=== PATIENT | male | born 1955 | race Caucasian/White ===

== ENCOUNTER 2023-05-16 13:54 | Day surgery (SDC) | payer BC, MEDICARE ==
[~2023-05-16] VITALS: Ht 177.8 cm; Wt 104.2 kg
[2023-05-16] VITALS (8 sets, daily range): BP systolic 110–132; BP diastolic 62–73; PULSE 63–70; RESP 16; TEMP 97.9; O2SAT 95–97
[2023-05-16] MEDS ORDERED: LORazepam 0.5 MG tablet PO PRN (14:15)
[2023-05-16] MEDS ORDERED: diphenhydrAMINE 25mg capsule PO PRN (14:15)
[2023-05-16] MEDS ORDERED: normal saline 1,000 ML IV SCH (14:15)
[2023-05-16] MEDS ORDERED: CLOP75TA34 PO (14:18)
[2023-05-16] MEDS ORDERED: SACU1TAB PO (14:18)
[2023-05-16] MEDS ORDERED: CARV6.2553 PO (14:18)
[2023-05-16] MEDS ORDERED: SPIR25TA5 PO (14:18)
[2023-05-16] MEDS ORDERED: DAPA10TA PO (14:18)
[2023-05-16] MEDS ORDERED: ASPI81TA52 PO (14:19)
[2023-05-16] MEDS ORDERED: EZET10TA48 PO (14:19)
[2023-05-16] MEDS ORDERED: ALIR150P6 SQ (14:19)
[2023-05-16] MEDS ORDERED: CEPH500C82 PO (14:19)
[2023-05-16 14:51] LABS: BASOPHILS # (AUTO) 0.1 X10'3 (0-0.2); BASOPHILS % (AUTO) 0.7 % (0-1); EOSINOPHILS # (AUTO) 0.2 X10'3 (0-0.9); EOSINOPHILS % (AUTO) 2.9 % (0-6); HEMATOCRIT 42.9 % (42.0-52.0); HEMOGLOBIN 14.3 g/dl (14.0-17.9); LYMPHOCYTES # (AUTO) 2.3 X10'3 (1.1-4.8); LYMPHOCYTES % (AUTO) 30.4 % (21-51); MEAN CORPUSCULAR HGB CONC 33.3 g/dL (33.0-36.5); MEAN CORPUSCULAR VOLUME 87.1 FL (78-98); MEAN PLATELET VOLUME 8.6 FL (7.4-10.4); MONOCYTES # (AUTO) 0.9 X10'3 (0-0.9); MONOCYTES % (AUTO) 11.1 % (2-12); NEUTROPHILS # (AUTO) 4.2 X10'3 (1.8-7.7); NEUTROPHILS % (AUTO) 54.9 % (42-75); PLATELET COUNT 174 X10'3 (140-440); RED BLOOD COUNT 4.92 X10'6 (4.70-6.10); RED CELL DISTRIBUTION WIDTH 15.3 % (11.5-14.5); WHITE BLOOD COUNT 7.7 X10'3 (4.5-11.0)
[2023-05-16 15:01] LABS: PROTHROMBIN TIME 9.9 SECONDS (9.0-12.0)
[2023-05-16 15:13] LABS: INR 0.9 INR
[2023-05-16 15:14] LABS: ALBUMIN 3.2 G/DL (3.4-5.0); ANION GAP 8 (8-16); BLOOD UREA NITROGEN 16 MG/DL (7-18); BUN/CREATININE RATIO 14.2 (10.0-20.0); CALCIUM 8.8 MG/DL (8.5-10.1); CHLORIDE 104 MMOL/L (99-107); CREATININE 1.13 MG/DL (0.60-1.10); GLUCOSE 107 MG/DL (70-104); MAGNESIUM 2.4 MG/DL (1.5-2.4); POTASSIUM 3.9 MMOL/L (3.5-5.1); SODIUM 138 MMOL/L (135-145); TOTAL CARBON DIOXIDE 25.8 MMOL/L (24-32); eCRCL 66 ML/MIN; eGFR 65 ML/MIN
[2023-05-16] MEDS ORDERED: midazolam 1 mg/ML 2ml injection ONE (16:28)
[2023-05-16] MEDS ORDERED: LIDOcaine 1% (10mg/ml)w/preservative inj. 20ml MDV ONE (16:28)
[2023-05-16] MEDS ORDERED: iohexol 350MG/ML 100ml bottle IV ONE ×2 (16:28→17:44)
[2023-05-16] MEDS ORDERED: fentaNYL/PF 50MCG/1 ML 2ML syringe ONE (16:28)
[2023-05-16] MEDS ORDERED: DOBUTamine-DoBUTrex 500mg/D5W 0 ML IV ONE (17:42)
[2023-05-16] MEDS ORDERED: HYDROcodone/acetaminophen 5mg/325mg tablet PO PRN (19:00)
[2023-05-16] MEDS ORDERED: HYDROcodone/acetaminophen 10/325mg tab PO PRN (19:00)
[2023-05-17 05:56] LABS: ISTAT HGB ART 13.3 g/dl (14.0-17.9); ISTAT HGB MIX 13.9 g/dl (14.0-17.9); ISTAT Hct ART 39 %PCV (42-52); ISTAT Hct MIX 41 %PCV (42-52); ISTAT O2 SATURATION ARTERIAL 97 % (95-98); ISTAT O2 SATURATION MIX VENOUS 67 % (60-80); ISTAT SOURCE BLNK
== END 2023-05-16 20:15 | disposition home or self-care (01) ==
LOC: SSTAY O 13:54
PROVIDERS: ATTEND Student in an Organized Health Care Education/Training Program
DX: I35.0 Nonrheumatic aortic (valve) stenosis (principal); I25.810 Atherosclerosis of coronary artery bypass graft(s) without angina pectoris; I25.10 Atherosclerotic heart disease of native coronary artery without angina pectoris; I25.82 Chronic total occlusion of coronary artery; I42.9 Cardiomyopathy, unspecified; E78.5 Hyperlipidemia, unspecified; I11.0 Hypertensive heart disease with heart failure; I50.9 Heart failure, unspecified; Z79.82 Long term (current) use of aspirin; Z79.899 Other long term (current) drug therapy; Z95.810 Presence of automatic (implantable) cardiac defibrillator; Z79.01 Long term (current) use of anticoagulants
CPT/HCPCS: 36415; 80048; 82803; 83735; 85014; 85025; 85610; 93005; 93461; 99152; 99153; J1644; J2250; J3010; J3490; J7030; Q0163; Q9967; A6258; C1751; C1760; C1894; J1250

== ENCOUNTER 2023-06-03 10:30 | Outpatient (CLI) | payer BC, MEDICARE ==
[~2023-06-03 10:30] MED LIST: ALIR150P6 SQ; ASPI81TA52 PO; CARV6.2553 PO; CEPH500C82 PO; CLOP75TA34 PO; DAPA10TA PO; EZET10TA48 PO; SACU1TAB PO; SPIR25TA5 PO
[2023-06-03 11:40] LABS: BASOPHILS % (AUTO) 0.5 % (0-1); EOSINOPHILS # (AUTO) 0.2 X10'3 (0-0.9); HEMATOCRIT 44.5 % (42.0-52.0); HEMOGLOBIN 14.8 g/dl (14.0-17.9); LYMPHOCYTES # (AUTO) 2.2 X10'3 (1.1-4.8); LYMPHOCYTES % (AUTO) 27.4 % (21-51); MEAN CORPUSCULAR HEMOGLOBIN 29.3 PG (27.0-31.0); MEAN CORPUSCULAR HGB CONC 33.3 g/dL (33.0-36.5); MEAN CORPUSCULAR VOLUME 88.2 FL (78-98); MEAN PLATELET VOLUME 8.8 FL (7.4-10.4); MONOCYTES # (AUTO) 0.9 X10'3 (0-0.9); MONOCYTES % (AUTO) 10.9 % (2-12); NEUTROPHILS # (AUTO) 4.7 X10'3 (1.8-7.7); NEUTROPHILS % (AUTO) 59.2 % (42-75); PLATELET COUNT 187 X10'3 (140-440); RED BLOOD COUNT 5.04 X10'6 (4.70-6.10); RED CELL DISTRIBUTION WIDTH 14.4 % (11.5-14.5)
[2023-06-03 11:53] LABS: APTT 25 SECONDS (22-32); PROTHROMBIN TIME 9.8 SECONDS (9.0-12.0)
[2023-06-03 11:56] LABS: ALANINE AMINOTRANSFERASE 27 U/L (12-78); ALBUMIN 3.2 G/DL (3.4-5.0); ALBUMIN/GLOBULIN RATIO 0.8 (1.1-1.5); ALKALINE PHOSPHATASE 79 IU/L (46-116); ANION GAP 4 (8-16); ASPARTATE AMINO TRANSFERASE 21 U/L (10-37); BILIRUBIN,TOTAL 0.5 MG/DL (0.1-1.0); BLOOD UREA NITROGEN 12 MG/DL (7-18); BUN/CREATININE RATIO 11.2 (10.0-20.0); CALCIUM 8.7 MG/DL (8.5-10.1); CHLORIDE 106 MMOL/L (99-107); CREATININE 1.07 MG/DL (0.60-1.10); GLUCOSE 113 MG/DL (70-104); POTASSIUM 4.4 MMOL/L (3.5-5.1); SODIUM 140 MMOL/L (135-145); TOTAL CARBON DIOXIDE 30.4 MMOL/L (24-32); TOTAL PROTEIN 7.1 G/DL (6.4-8.2); eGFR 69 ML/MIN
[2023-06-03 11:57] LABS: INR 0.9 INR
[2023-06-03 12:04] LABS: PRO BRAIN NATRIURETIC PEPTIDE 168 PG/ML (0-125)
[2023-06-03] MEDS ORDERED: IODIXANOL 320 MG/ML INFUS..BTL 100ML IV ONE (12:09)
== END 2023-06-03 23:59 | disposition home or self-care (01) ==
LOC: 64 CT 10:30
PROVIDERS: ATTEND Internal Medicine Cardiovascular Disease
DX: Z01.818 Encounter for other preprocedural examination (principal); I35.0 Nonrheumatic aortic (valve) stenosis; R06.02 Shortness of breath; I65.29 Occlusion and stenosis of unspecified carotid artery; K80.20 Calculus of gallbladder without cholecystitis without obstruction; I70.0 Atherosclerosis of aorta; M47.814 Spondylosis without myelopathy or radiculopathy, thoracic region
CPT/HCPCS: 36415; 71046; 71275; 74174; 75572; 80053; 83880; 85025; 85610; 85730; 94010; 94727; 94729; J3490; Q9967; 70496

== ENCOUNTER 2023-07-21 06:01 | Inpatient (IN) | payer BC, MEDICARE ==
[2023-07-18 15:46] LABS: BILIRUBIN,URINE NEGATIVE (Neg); CLARITY,URINE CLEAR (Clear); COLOR,URINE YELLOW (Yellow); GLUCOSE, URINE >=1000 mg/dl (Neg); KETONES,URINE NEGATIVE (Neg); LEUKOCYTE ESTERASE ,URINE NEGATIVE (Neg); NITRITES, URINE NEGATIVE (Neg); OCCULT BLOOD,URINE TRACE-INTACT (Neg); PH,URINE 5.5 (4.8-8.0); PROTEIN,URINE NEGATIVE (Neg); UROBILINOGEN,URINE 0.2 E.U/dL (0.2-1.0)
[2023-07-18 15:47] LABS: BASOPHILS # (AUTO) 0.1 X10'3 (0-0.2); BASOPHILS % (AUTO) 0.6 % (0-1); EOSINOPHILS # (AUTO) 0.2 X10'3 (0-0.9); LYMPHOCYTES # (AUTO) 2.5 X10'3 (1.1-4.8); LYMPHOCYTES % (AUTO) 31.5 % (21-51); MEAN CORPUSCULAR HEMOGLOBIN 29.1 PG (27.0-31.0); MEAN CORPUSCULAR HGB CONC 32.8 g/dL (33.0-36.5); MEAN CORPUSCULAR VOLUME 88.7 FL (78-98); MEAN PLATELET VOLUME 8.8 FL (7.4-10.4); MONOCYTES % (AUTO) 12.2 % (2-12); NEUTROPHILS # (AUTO) 4.2 X10'3 (1.8-7.7); NEUTROPHILS % (AUTO) 53.7 % (42-75); PRE OP HEMATOCRIT 46.7 % (42.0-52.0); PRE OP HEMOGLOBIN 15.3 g/dL (14.0-17.9); PRE OP PLATELET COUNT 198 X10'3 (140-440); PRE OP WHITE BLOOD COUNT 7.8 10'3 (4.8-10.8); RED BLOOD COUNT 5.26 X10'6 (4.70-6.10); RED CELL DISTRIBUTION WIDTH 13.9 % (11.5-14.5)
[2023-07-18 15:51] LABS: UA COLLECTION TYPE CLN CATCH MIDSTREAM
[2023-07-18 15:54] LABS: BACTERIA,URINE NONE SEEN /HPF (Neg); RBC,URINE 0-2 /HPF (0-2); SQUAMOUS EPITHELIAL CELL,UR FEW /LPF (FEW); WBC,URINE 0-4 /HPF (0-4)
[2023-07-18 15:58] LABS: PRE OP INR 0.9 INR; PRE OP PROTIME 10.1 SECONDS (9.0-12.0)
[2023-07-18 16:10] LABS: ALBUMIN 3.3 G/DL (3.4-5.0); ALBUMIN/GLOBULIN RATIO 0.8 (1.1-1.5); ALKALINE PHOSPHATASE 65 IU/L (46-116); BLOOD UREA NITROGEN 16 MG/DL (7-18); BUN/CREATININE RATIO 13.9 (10.0-20.0); CALCIUM 8.6 MG/DL (8.5-10.1); CHLORIDE 103 MMOL/L (99-107); CREATININE 1.15 MG/DL (0.60-1.10); PRE OP ALT 24 U/L (30-65); PRE OP ANION GAP 9 (8-16); PRE OP AST 21 U/L (10-37); PRE OP BILIRUB, TOTAL 0.3 MG/DL (0.0-1.0); PRE OP GLUCOSE 95 MG/DL (70-104); PRE OP POTASSIUM 3.9 MMOL/L (3.4-5.1); PRE OP SODIUM 137 MMOL/L (135-145); PRO BRAIN NATRIURETIC PEPTIDE 133 PG/ML (0-125); TOTAL PROTEIN 7.3 G/DL (6.4-8.2); eGFR 64 ML/MIN
[2023-07-21] VITALS (17 sets, daily range): BP systolic 111–142; BP diastolic 52–83; PULSE 61–76; RESP 14–24; TEMP 97.8–98.9; O2SAT 97–100
[~2023-07-21] VITALS: Ht 175.3 cm; Wt 103.8 kg
[~2023-07-21 06:01] MED LIST changes: -CEPH500C82 PO; -CLOP75TA34 PO; +DOCUMENT DATE & TIME OF BETA-BLOCKER PO ONE; +aspirin 325mg tablet PO PRN; +cefazolin 2gm/D5W 100mL 100 ML IV ONE; +famotidine 20mg tablet PO ONE; +nitroPRUSSIDE (NIPRIDE) (200MCG/ML) 100ML Drip IV SCH; +nitroPRUSSIDE sod inj. 50 MG in dextrose 5%-water 248 ML IV SCH; +ondansetron/PF 4mg/2ml inj IV PRN; +phenylephrine inj 50 MG in normal saline 250ml IV solN IV SCH; +ringers solution, lacted 1,000 ML IV SCH; +vancomycin 1,500 MG in NS 300ml IV soln IV ONE
[2023-07-21] MEDS ORDERED: protamine sulfate 10mg/ml inj. ONE (07:03)
[2023-07-21] MEDS ORDERED: LIDOcaine 1% (10mg/ml) 2ml vial ONE (08:31)
[2023-07-21] MEDS ORDERED: heparin 1,000 UNITS/NS 500ml 1,500 ML ONE (08:38)
[2023-07-21] MEDS ORDERED: iohexol 350MG/ML 100ml bottle IV ONE (08:38)
[2023-07-21] MEDS ORDERED: LIDOcaine 1% (10mg/ml)w/preservative inj. 20ml MDV ONE (08:38)
[2023-07-21] MEDS ORDERED: heparin 1,000 UNITS/NS 500ml 500 ML ONE (08:39)
[2023-07-21] MEDS ORDERED: hydrALAZINE 20mg/ml inj. IV PRN ×2 (08:55→10:15)
[2023-07-21] MEDS ORDERED: labetalol 20mg/4ml (5mg/ml) syringe IV PRN ×2 (08:55→10:15)
[2023-07-21] MEDS ORDERED: ringers solution, lacted 1,000 ML IV SCH (08:55)
[2023-07-21] MEDS ORDERED: ondansetron/PF 4mg/2ml inj IV PRN ×2 (08:55→10:15)
[2023-07-21] MEDS ORDERED: morphine 4 MG/ML inj SYRINge IV PRN (08:55)
[2023-07-21] MEDS ORDERED: morphine 2 MG/ML inj. syringe IV PRN (08:55)
[2023-07-21] MEDS ORDERED: fentaNYL/PF 50MCG/1 ML 2ML syringe ONE (08:59)
[2023-07-21] MEDS ORDERED: desflurane 240ml liquid inh. IH ONE (09:00)
[2023-07-21] MEDS ORDERED: midazolam 1 mg/ML 2ml injection ONE (09:00)
[2023-07-21] MEDS ORDERED: heparin 1,000unit/ml 10ml vial 10 ML ONE (09:00)
[2023-07-21] MEDS ORDERED: propofol inj 20 ML IV ONE (09:00)
[2023-07-21] MEDS ORDERED: LIDOcaine 2% (20mg/ml) 5ml vial ONE (09:00)
[2023-07-21] MEDS ORDERED: protamine sulf. 10mg/ml inj. IV ONE (10:00)
[2023-07-21] MEDS ORDERED: potassium Cl 20 mEq SR tablet PO PRN (10:15)
[2023-07-21] MEDS ORDERED: ALPRAZolam 0.25mg tablet PO PRN (10:15)
[2023-07-21] MEDS ORDERED: potassium Cl 40MEQ/1/2NS 520ml 520 ML IV PRN (10:15)
[2023-07-21] MEDS ORDERED: docusate sod 100mg capsule PO PRN (10:15)
[2023-07-21] MEDS ORDERED: potassium CL 10mEq/100ml bag 100 ML IV PRN (10:15)
[2023-07-21] MEDS ORDERED: magnesium 4gm in 100ml NS 100 ML IV PRN (10:15)
[2023-07-21] MEDS ORDERED: proCHLORperazine 10 MG/2 ml inj IV PRN (10:15)
[2023-07-21] MEDS ORDERED: acetaminophen 325mg tablet PO PRN (10:15)
[2023-07-21] MEDS ORDERED: potassium Cl 40MEQ/270ML bag 250 ML IV PRN (10:15)
[2023-07-21] MEDS ORDERED: pantoprazole 40mg Tablet.DR PO PRN (10:15)
[2023-07-21] MEDS ORDERED: HYDROcodone/acetaminophen 5mg/325mg tablet PO PRN (10:15)
[2023-07-21] MEDS ORDERED: potassium Cl 20mEq/100mL bag 100 ML IV PRN (10:15)
[2023-07-21] MEDS ORDERED: magnesium 2GM in 50ml NS 50 ML IV PRN (10:15)
[2023-07-21] MEDS ORDERED: diphenhydrAMINE 25mg capsule PO PRN (10:15)
[2023-07-21] MEDS: normal saline 1000ml 1,000 ML IV SCH ×2 (12:45→20:56)
[2023-07-21] MEDS: ceFAZolin 1GM/D5W- ADD-VANTAGE 50 ML IV SCH (16:17)
[2023-07-21] MEDS: sod chloride 0.9% 10ml flush syringe IV SCH (16:21)
[2023-07-21] MEDS: sacubitril/valsartan 24mg-26mg tablet PO SCH (20:56)
[2023-07-21] MEDS: vancomycin/NS 1 GM ADD-VANTAGE 250 ML IV SCH (20:56)
[2023-07-21] MEDS: carvedilol 6.25mg tablet PO SCH (20:56)
[2023-07-22] MEDS: ceFAZolin 1GM/D5W- ADD-VANTAGE 50 ML IV SCH ×2 (00:51→08:31)
[2023-07-22] MEDS: sod chloride 0.9% 10ml flush syringe IV SCH ×2 (00:51→08:00)
[2023-07-22 02:00] VITALS: BP 125/70; PULSE 75; RESP 12; TEMP 98; O2SAT 96
[2023-07-22 06:00] VITALS: BP 117/66; PULSE 77; RESP 16; TEMP 98.8; O2SAT 98
[2023-07-22] MEDS: normal saline 1000ml 1,000 ML IV SCH (06:15)
[2023-07-22 06:44] LABS: BASOPHILS % (AUTO) 0.3 % (0-1); EOSINOPHILS # (AUTO) 0.1 X10'3 (0-0.9); EOSINOPHILS % (AUTO) 1.3 % (0-6); HEMATOCRIT 43.3 % (42.0-52.0); HEMOGLOBIN 14.2 g/dl (14.0-17.9); LYMPHOCYTES # (AUTO) 1.2 X10'3 (1.1-4.8); LYMPHOCYTES % (AUTO) 15.6 % (21-51); MEAN CORPUSCULAR HEMOGLOBIN 29.1 PG (27.0-31.0); MEAN CORPUSCULAR HGB CONC 32.8 g/dL (33.0-36.5); MEAN CORPUSCULAR VOLUME 88.7 FL (78-98); NEUTROPHILS # (AUTO) 5.5 X10'3 (1.8-7.7); NEUTROPHILS % (AUTO) 69.8 % (42-75); PLATELET COUNT 138 X10'3 (140-440); RED BLOOD COUNT 4.88 X10'6 (4.70-6.10); RED CELL DISTRIBUTION WIDTH 14.2 % (11.5-14.5); WHITE BLOOD COUNT 7.8 X10'3 (4.5-11.0)
[2023-07-22 07:28] LABS: ALANINE AMINOTRANSFERASE 15 U/L (12-78); ALBUMIN 2.9 G/DL (3.4-5.0); ALBUMIN/GLOBULIN RATIO 0.8 (1.1-1.5); ALKALINE PHOSPHATASE 65 IU/L (46-116); ANION GAP 8 (8-16); ASPARTATE AMINO TRANSFERASE 22 U/L (10-37); BILIRUBIN,TOTAL 0.7 MG/DL (0.1-1.0); BLOOD UREA NITROGEN 13 MG/DL (7-18); BUN/CREATININE RATIO 12.9 (10.0-20.0); CHLORIDE 104 MMOL/L (99-107); CREATININE 1.01 MG/DL (0.60-1.10); GLUCOSE 107 MG/DL (70-104); MAGNESIUM 2.1 MG/DL (1.5-2.4); POTASSIUM 3.8 MMOL/L (3.5-5.1); PRO BRAIN NATRIURETIC PEPTIDE 266 PG/ML (0-125); SODIUM 137 MMOL/L (135-145); TOTAL CARBON DIOXIDE 24.6 MMOL/L (24-32); TOTAL PROTEIN 6.4 G/DL (6.4-8.2); eCRCL 72 ML/MIN; eGFR 74 ML/MIN
[2023-07-22] MEDS ORDERED: aspirin 81mg, enteric-coated 1 TAB TABLET.DR PO SCH (08:00)
[2023-07-22] MEDS ORDERED: spironolactone 25 MG tablet PO SCH (08:00)
[2023-07-22] MEDS ORDERED: ezetimibe 10mg tablet PO SCH (08:00)
[2023-07-22 08:10] VITALS: RESP 16; O2SAT 98
[2023-07-22] MEDS ORDERED: aspirin 81mg tab.chew PO SCH (08:30)
[2023-07-22] MEDS: vancomycin/NS 1 GM ADD-VANTAGE 250 ML IV SCH (08:31)
[2023-07-22] MEDS: carvedilol 6.25mg tablet PO SCH (08:41)
[2023-07-22] MEDS: sacubitril/valsartan 24mg-26mg tablet PO SCH (08:42)
[2023-07-22 11:00] VITALS: BP 107/72; PULSE 81; RESP 18; TEMP 97.9; O2SAT 97
== END 2023-07-22 16:32 | disposition home or self-care (01) | DRG 266 ==
LOC: PAS IN 06:01 → PCU 3S 12:43
PROVIDERS: ADMIT Internal Medicine Cardiovascular Disease; ATTEND Internal Medicine Cardiovascular Disease
PROC: B41G1ZZ Fluoroscopy of Left Lower Extremity Arteries using Low Osmolar Contrast (ICD-10-PCS; 2023-07-21)
PROC: B41F1ZZ Fluoroscopy of Right Lower Extremity Arteries using Low Osmolar Contrast (ICD-10-PCS; 2023-07-21)
PROC: 03HY32Z Insertion of Monitoring Device into Upper Artery, Percutaneous Approach (ICD-10-PCS; 2023-07-21)
PROC: B3101ZZ Fluoroscopy of Thoracic Aorta using Low Osmolar Contrast (ICD-10-PCS; 2023-07-21)
PROC: 02RF38N Replacement of Aortic Valve with Zooplastic Tissue, using Rapid Deployment Technique, Percutaneous Approach (ICD-10-PCS; principal; 2023-07-21 09:00)
DX: I35.0 Nonrheumatic aortic (valve) stenosis (principal); Z00.6 Encounter for examination for normal comparison and control in clinical research program; I50.23 Acute on chronic systolic (congestive) heart failure; E78.5 Hyperlipidemia, unspecified; I11.0 Hypertensive heart disease with heart failure; I25.10 Atherosclerotic heart disease of native coronary artery without angina pectoris; E66.01 Morbid (severe) obesity due to excess calories; I44.7 Left bundle-branch block, unspecified; I25.2 Old myocardial infarction; Z95.1 Presence of aortocoronary bypass graft; Z68.33 Body mass index [BMI] 33.0-33.9, adult
CPT/HCPCS: 33361; 36415; 71045; 71046; 76937; 80053; 81001; 82948; 83735; 83880; 85025; 85347; 85610; 85730; 86885; 86900; 86901; 86920; 87081; 93005; 93308; A4618; A6258; A6449; C1756; C1758; C1760; C1769; C1894; G0378; J0690; J1644; J2250; J2370; J2704; J2720; J3010; J3370; J3490; J7030; J7040; J7050; J7120; Q9967